=== PATIENT | female | born 1995 | race Caucasian/White ===

== ENCOUNTER 2018-08-19 14:24 | Emergency (ER) | payer SELFPAY ==
[~2018-08-19] VITALS: Ht 172.7 cm; Wt 59.1 kg
[2018-08-19 14:27] VITALS: TEMP 98
[2018-08-19 16:59] VITALS: BP 124/69; PULSE 77
== END 2018-08-19 17:00 | disposition home or self-care (01) ==
LOC: COL.ER 14:24
DX: R10.2 Pelvic and perineal pain (principal); Z30.432 Encounter for removal of intrauterine contraceptive device